=== PATIENT | male | born 1990 | race Caucasian/White ===

== ENCOUNTER 2021-07-30 09:36 | Emergency (ER) | payer SELFPAY ==
[~2021-07-30] VITALS: Ht 185.4 cm; Wt 70.3 kg
[2021-07-30 09:47] VITALS: BP 115/67
[2021-07-30] MEDS ORDERED: TDAP [DIPH/PERTUSSIS/TET] 0.5 ML VIAL IM ONE ×2 (10:30→10:33)
--- NOTE | 2021-07-30 10:50 | NUR ---
Patient discharged to home in stable condition. Written and verbal after care instructions given. Patient verbalizes understanding of instruction.
== END 2021-07-30 10:56 | disposition home or self-care (01) ==
LOC: ER 10:04
DX: S61.211A Laceration without foreign body of left index finger without damage to nail, initial encounter (principal); W26.8XXA Contact with other sharp object(s), not elsewhere classified, initial encounter; Y93.89 Activity, other specified; Y92.89 Other specified places as the place of occurrence of the external cause; Y99.8 Other external cause status
CPT/HCPCS: 90715

== ENCOUNTER 2021-09-04 10:16 | Emergency (ER) | payer MEDICAID ==
[~2021-09-04] VITALS: Ht 185.4 cm; Wt 72.6 kg
[2021-09-04 10:21] VITALS: BP 132/79
[2021-09-04] MEDS ORDERED: LORA-259 PO (10:51)
== END 2021-09-04 10:57 | disposition home or self-care (01) ==
LOC: ER 10:23
DX: F41.0 Panic disorder [episodic paroxysmal anxiety] (principal)